=== PATIENT | male | born 1990 | race Two or more races ===

== ENCOUNTER 2017-11-17 12:06 | Emergency (ER) | payer OTHER ==
[2017-11-17 12:14] VITALS: BP 145/90
--- NOTE | 2017-11-17 13:07 | EDPHY ---
H & P Stated Complaint: pinned by fork lift briefly, c/o abd pain, left arm, leg numbness. Time Seen by Provider: 11/17/17 12:48 HPI/ROS: CHIEF COMPLAINT: Left thigh tingling HISTORY OF PRESENT ILLNESS: 27-year-old male presents with left thigh tingling after being pinned by a forklift. 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 He was able to move the forklift and was only pinned for few seconds. He presents because of tingling left anterior thigh. Denies back pain. He also has an abrasion on the left forearm. REVIEW OF SYSTEMS: complete 10 point ROS negative except as noted in the HPI - Personal History Current Tetanus/Diphtheria Vaccine: Unsure Current Tetanus Diphtheria and Acellular Pertussis (TDAP): Unsure - Medical/Surgical History Hx Asthma: No Hx Chronic Respiratory Disease: No Hx Diabetes: No Hx Cardiac Disease: No Hx Renal Disease: No Hx Cirrhosis: No Hx Alcoholism: No Hx HIV/AIDS: No Hx Splenectomy or Spleen Trauma: No Other PMH: PMH: denies - Social History Smoking Status: Never smoked Alcohol Use: Sober - Physical Exam Exam: General Appearance: Alert, pleasant Head: Atraumatic Eyes: No conjunctival erythema ENT, Mouth: Normal inspection Neck: Nontender, full range of motion without pain Respiratory: No chest wall tenderness, lungs clear bilaterally Cardiovascular: Regular rate and rhythm Abdomen: Abdomen is soft and nontender Skin: No lacerations Back: No midline T/L/S tenderness to palpation or percussion, there is a linear abrasion on the left lateral lumbar area and the anterior pelvic area Extremities: Pelvis is stable and nontender; left forearm swelling and a small abrasion, no bony tenderness Neurological: A&Ox3, normal motor function, decreased sensation to light touch on the anterior aspect of the left thigh only, does not extend to the knee Psychiatric: Mood and affect normal Constitutional: Initial Vital Signs Temperature (C) 37.0 C 11/17/17 12:11 Heart Rate 91 11/17/17 12:11 Respiratory Rate 18 11/17/17 12:11 Blood Pressure 145/90 H 11/17/17 12:11 O2 Sat (%) 95 11/17/17 12:11 O2 Delivery Mode Room Air Allergies/Adverse Reactions: No Known Allergies Allergy (Unverified 11/17/17 12:14) Home Medications: Medication Instructions Recorded NK [No Known Home Meds] 11/17/17 Medical Decision Making ED Course/Re-evaluation: This pt presents with left ant thigh paresthesias after a transient crush injury. This is likely a peripheral neuropathy, as there is no evidence for spinal injury on exam. I do not feel that imaging is indicated in this pt. If sx persist, f/u neuro. Differential Diagnosis: includes though not limited to spinal fx, nerve compression, pelvic/ext fracture , vascular compromise, intraabd injury. Departure - Departure Disposition: Home, Routine, Self-Care Clinical Impression: PARESTHESIA THIGH, Multiple contusions Condition: Good Instructions: Contusion in Adults (ED) Additional Instructions: Return for worsening symptoms, any concerns. Ibuprofen 600 mg 3 times daily while the pain persists. Referrals: NONE *PRIMARY CARE P,. [Primary Care Provider] - As per Instructions
== END 2017-11-17 13:06 | disposition home or self-care (01) ==
DX: S70.12XA Contusion of left thigh, initial encounter (principal); R20.2 Paresthesia of skin; V83.5XXA Driver of special industrial vehicle injured in nontraffic accident, initial encounter; Y99.8 Other external cause status; Y93.89 Activity, other specified